=== PATIENT | male | born 1975 ===

== ENCOUNTER 2025-06-16 14:39 | Outpatient (AMB) | payer OTHER, SELFPAY ==
--- NOTE | 2025-06-16 14:46 | MHC.OFFVIS ---
Vital Signs 06/16/25 15:00 Height 5 ft 8 in Weight 244 lb 2 oz BMI 37.1 Intake Visit Reasons: CHRONIC RIGHT KNEE PAIN Intake Note: Pain today 7.01/08 Residential Life Director Required: No Accompanied by: Self / Same As Patient Allergies No Known Allergies Allergy (Verified 06/16/25 14:50) HPI Comments Details: The patient is a 50-year-old male presenting with chronic pain syndrome, primarily involving the right knee and back pain. The right knee pain has been persistent for over a year, initially triggered by a meniscus tear. Patient shared partial report of MRI conducted on January 28, 2025 via his patient portal, which revealed tricompartmental osteoarthritis with joint effusion, most pronounced in the medial tibiofemoral compartment, and radial tearing of the medial meniscus, likely chronic in nature. The patient has experienced swelling and aching, with the pain described as constant, throbbing, shooting, and sharp, often exacerbated by physical activity and cold weather. Interventions have included a cortisone injection, which provided no relief, and prednisone, which reduced inflammation but not pain. Physical therapy was attempted but discontinued due to persistent swelling and pain, and the patient reports he was advised to consider surgical options. The patient has also tried various medications, including Tylenol, Motrin, diclofenac, and gabapentin, with limited success. The patient has a history of diabetes mellitus, with an A1c level below 7. He receives psychological counseling for chronic depression. patient also reports chronic low back pain with occasional pins and needle sensations in his lower extremities. Denies previous spine or joint surgeries. - Onset: Pain has been present for over a year, worsening for past 4-6 months - Quality: Described as constant, throbbing, shooting, stabbing, and sharp. - Location: Primarily in the right knee, with mild swelling noted. - Exacerbating factors: Physical activity, cold weather, climbing stairs and kneeling. - Relieving factors: Rest and elevation of the leg. - Impact: Pain interferes with daily activities and causes significant distress. - Affect: Pain causes significant distress and emotional impact. - Analgesia: Current medications include Tylenol, Motrin, diclofenac, and gabapentin, with limited relief. - Adverse Effects: Diclofenac initially worsens pain before providing relief. - Activities of Daily Living: Pain limits physical activity and daily functioning. - Aberrant Drug Related Behaviors: No evidence of medication misuse reported. [facility] Medical History (Updated 06/19/25 @ 23:00 by JUSTUS Pereira) SOB (shortness of breath) on exertion Multiple joint pain Hyperlipidemia Hepatic steatosis Heart palpitations GERD (gastroesophageal reflux disease) Chronic cough Depression Bilateral leg edema Type 2 diabetes mellitus Leukocytosis Chronic hand pain Lesion of skin of scalp Chronic upper back pain Osteoarthritis of thoracic spine Chronic low back pain Arthralgia Diarrhea Chronic pain of right knee Sigmoid diverticulosis Review of Systems Const Details: - Musculoskeletal: Reports chronic right knee pain with swelling and tenderness. Denies foot swelling. - Endocrine: Reports diabetes mellitus with controlled blood sugar levels (A1c below 7). All systems reviewed & are unremarkable except as noted in HPI and below Physical Exam Vital Signs: BMI result Body Mass Index 37.1 General: Appears afebrile. Alert and oriented. Mood and affect appropriate. Follows and participates in conversation appropriately. Respiratory effort is unlabored. No cough. Able to transition from sit to stand unassisted. Ambulates with bilaterally normal heel strike and toe off. Back/Spine/Pelvis Thoracic/Lumbar Spine: thoracic and lumbar spine normal to inspection, Lasegue's sign negative, straight leg raise negative bilaterally, pain with thoraco-lumbar ROM, thoraco-lumbar ROM limited, No thoracic spinal tenderness and No lumbar spinal tenderness Extrem General: Yes capillary refill normal, Yes no clubbing, cyanosis or edema and Yes no calf tenderness Right lower extremity: knee (Limited ROM due to pain) Details: normal to inspection, tenderness Location: of the medial joint line, swelling Location: of the patella and crepitus; no ecchymosis, no deformity and no unusual warmth Results Reviewed Results Reviewed: Pending full report right knee MRI from [facility] Assessment & Plan Assessment & Plan (1) Chronic pain of both knees: Code(s): M25.561 - Pain in right knee; M25.562 - Pain in left knee; G89.29 - Other chronic pain (2) Right knee meniscal tear: Code(s): S83.206A - Unspecified tear of unspecified meniscus, current injury, right knee, initial encounter Category: Medical (3) Chronic low back pain: Code(s): M54.50 - Low back pain, unspecified; G89.29 - Other chronic pain Category: Medical Plan The plan involves referring the patient to an internet marketing specialist for further evaluation and potential surgical intervention, given the chronic nature of the meniscal tear and osteoarthritis. In the interim, the patient is advised to continue with pain management strategies, including the use of Celebrex, which has been prescribed to replace diclofenac and ibuprofen. If surgical intervention is not deemed necessary, a right diagnostic genicular nerve block may be considered for potential radiofrequency ablation (RFA) to manage pain. All questions and concerns have been answered and patient agreed with the treatment plan. Follow up after Orthopedic evaluation and sooner as needed. Patient was informed and verbally consented to the use of an ambient scribe for clinic note documentation during this visit. Orders: Referrals Orthopedics Referral G89.29 - Other chronic pain, M25.561 - Pain in right knee Medications: New celecoxib (Celebrex) 200 mg PO BID PRN 60 caps 0RF pain 30 days G89.29 - Other chronic pain, M25.561 - Pain in right knee, M25.562 - Pain in left knee Coding Level of Care Code New Pt Level 4 (00056) Diagnoses Chronic pain of both knees M25.561; M25.562; G89.29 Right knee meniscal tear S83.206A Chronic low back pain M54.50; G89.29
[2025-06-16 15:00] VITALS: BMI 37.1
== END 2025-06-16 15:17 | disposition home or self-care (01) ==
PROVIDERS: PCP Internal Medicine; Visit Provider Nurse Practitioner Family
DX: M25.561 Pain in right knee (principal); M25.562 Pain in left knee; G89.29 Other chronic pain; S83.206A Unspecified tear of unspecified meniscus, current injury, right knee, initial encounter; M54.50 Low back pain, unspecified
CPT/HCPCS: 99204

== ENCOUNTER → 2025-06-16 14:39 | Outpatient (BNVA) | payer OTHER, SELFPAY | PROVIDERS: PCP Internal Medicine; Visit Provider Nurse Practitioner Family | DX: M25.561 Pain in right knee (principal); M25.562 Pain in left knee; G89.29 Other chronic pain; S83.206A Unspecified tear of unspecified meniscus, current injury, right knee, initial encounter; M54.50 Low back pain, unspecified | CPT/HCPCS: 99202 ==